=== PATIENT | male | born 1975 | race Two or more races ===

== ENCOUNTER → 2022-12-31 | Outpatient (CLI) | payer MEDICARE, MEDICAID | END | disposition home or self-care (01) | LOC: Rad HDHVI 08:06 | PROVIDERS: ATTEND Internal Medicine Cardiovascular Disease | DX: I11.9 Hypertensive heart disease without heart failure (principal) | CPT/HCPCS: 93306 ==

== ENCOUNTER → 2023-01-04 | Outpatient (CLI) | payer MEDICARE, MEDICAID ==
[~2023-01-04] VITALS: Ht 177.8 cm; Wt 66.2 kg
[~2023-01-04] MED LIST: ADENOSINE 56 MG in GIVE UN-DILUTED 0 ML IV ONE; ADENOSINE 90 MG/30 ML INJ IV ONE
== END | disposition home or self-care (01) ==
LOC: Rad HDHVI 09:19
PROVIDERS: ATTEND Internal Medicine Cardiovascular Disease
DX: E78.5 Hyperlipidemia, unspecified (principal); N19 Unspecified kidney failure; Z82.49 Family history of ischemic heart disease and other diseases of the circulatory system
CPT/HCPCS: 78452; 93005; 96374; 96375; A9500; J0153

== ENCOUNTER → 2023-01-12 | Outpatient (CLI) | payer MEDICARE, MEDICAID | END | disposition home or self-care (01) | LOC: Rad HDHVI 15:41 | PROVIDERS: ATTEND Internal Medicine Cardiovascular Disease | DX: I70.203 Unspecified atherosclerosis of native arteries of extremities, bilateral legs (principal) | CPT/HCPCS: 93925 ==

== ENCOUNTER 2023-02-10 07:12 | Day surgery (SDC) | payer MEDICARE, MEDICAID ==
[2023-02-09 10:39] LABS: Basophils # (auto) 0 10 ^3/uL (0-0.2); Basophils % (auto) 0.6 % (0.0-2.0); Eosinophils # (auto) 0.1 10 ^3/uL (0-0.8); Eosinophils % (auto) 1.8 % (0.0-7.0); Hematocrit 37.3 % (41.0-53.0); Hemoglobin 12.3 g/dL (13.5-17.5); Lymphocytes # (auto) 2.7 10 ^3/uL (0.4-5.4); Lymphocytes % (auto) 36.5 % (10.0-50.0); Mean Corpuscular Hemoglobin 29.6 pg (28.0-32.0); Mean Corpuscular Volume 89.7 fL (80.0-100.0); Monocytes # (auto) 1.1 10 ^3/uL (0-1.3); Monocytes % (auto) 15.5 % (0.0-12.0); Neutrophils # (auto) 3.3 10 ^3/uL (1.6-8.6); Neutrophils % (auto) 45.6 % (37.0-80.0); Red Blood Cells 4.16 10^6/uL (4.5-5.90); Red Cell Distribution Width 16.3 % (11.8-14.3); White Blood Cell 7.3 10^3/uL (4.4-10.8)
[2023-02-09 11:00] LABS: INR 0.94 (0.9-1.15); Partial Thromboplastin Time 24.9 SEC (24.5-34.5); Prothrombin Time 9.9 sec (9.3-11.8)
[2023-02-09 11:26] LABS: Alanine Aminotransferase 23 U/L (7-40); Alkaline Phosphatase 67 U/L (46-116); Anion Gap 7.8 (5-15); BUN/Creatinine Ratio 13.4 (10.0-20.0); Blood Urea Nitrogen 21 mg/dL (9-23); Calcium 10.7 mg/dL (8.5-10.1); Carbon Dioxide 23.2 mmol/L (20-30); Chloride 104 mmol/L (98-107); Glucose 96 mg/dL (74-106); Sodium 135 mmol/L (136-145)
[2023-02-09 11:27] LABS: Albumin 4.6 g/dL (3.2-4.8)
[2023-02-09 11:28] LABS: Aspartate Aminotransferase 12 U/L (13-40); Bilirubin, Total 0.3 mg/dL (0.2-1.0); Total Protein 7.6 g/dL (5.7-8.2)
[2023-02-10] VITALS (8 sets, daily range): BP systolic 139–160; BP diastolic 85–112; PULSE 49–60; RESP 12–17; O2SAT 95–99
[~2023-02-10] VITALS: Ht 177.8 cm; Wt 67.6 kg
[~2023-02-10 07:12] MED LIST changes: -ADENOSINE 56 MG in GIVE UN-DILUTED 0 ML IV ONE; -ADENOSINE 90 MG/30 ML INJ IV ONE; +FAMO-12 PO; +MYCO250C PO; +PRAV20TA3 PO; +PRE5T PO; +SIRO1TAB4 PO; +TACR1GRA PO; +[UNRECOGNIZED DRUG - CODE] PO
[2023-02-10] MEDS ORDERED: fentaNYL CITRATE 100 MCG/2 ML VL ONE (11:03)
[2023-02-10] MEDS ORDERED: SODIUM CHL 0.9% 0 ML ONE (11:03)
[2023-02-10] MEDS ORDERED: ANGIOMAX 250 MG VIAL IV ONE (11:03)
[2023-02-10] MEDS ORDERED: MIDAZOLAM HCL 2MG/2ML 2ml VIAL (1mg/ml) ONE (11:03)
[2023-02-10] MEDS ORDERED: LIDOCAINE 2%HCL (LOCAL ANESTH.) INJ 20ML MDV ONE (11:04)
[2023-02-10] MEDS ORDERED: IOHEXOL 350 MG/ML 100ML IJ ONE (11:04)
[2023-02-10] MEDS ORDERED: IODIXANOL 320MG/ML 100ML BTL IV ONE (11:08)
== END 2023-02-10 13:50 | disposition home or self-care (01) ==
LOC: CATH 07:12
PROVIDERS: ATTEND Internal Medicine Cardiovascular Disease
DX: I96 Gangrene, not elsewhere classified (principal); Z94.0 Kidney transplant status; I10 Essential (primary) hypertension; E78.5 Hyperlipidemia, unspecified
CPT/HCPCS: 36247; 36415; 75716; 80053; 85025; 85610; 85730; C1769; C1887; C1894; J1644; J2250; J3010; Q9967; 99152

== ENCOUNTER 2023-03-16 08:20 | Day surgery (SDC) | payer MEDICARE, MEDICAID ==
[2023-03-09 09:39] LABS: Basophils # (auto) 0.1 10 ^3/uL (0-0.2); Basophils % (auto) 1.1 % (0.0-2.0); Eosinophils # (auto) 0.2 10 ^3/uL (0-0.8); Eosinophils % (auto) 2.2 % (0.0-7.0); Hematocrit 40.1 % (41.0-53.0); Lymphocytes # (auto) 2.9 10 ^3/uL (0.4-5.4); Lymphocytes % (auto) 33.3 % (10.0-50.0); Mean Corpuscular Hemoglobin 29.7 pg (28.0-32.0); Mean Corpuscular Hgb Conc. 32.4 g/dL (32.0-36.0); Mean Corpuscular Volume 91.7 fL (80.0-100.0); Monocytes # (auto) 1.2 10 ^3/uL (0-1.3); Monocytes % (auto) 13.7 % (0.0-12.0); Neutrophils # (auto) 4.4 10 ^3/uL (1.6-8.6); Neutrophils % (auto) 49.7 % (37.0-80.0); Nucleated Red Blood Cells % 0.1 %; Red Blood Cells 4.37 10^6/uL (4.5-5.90); Red Cell Distribution Width 15.4 % (11.8-14.3); White Blood Cell 8.8 10^3/uL (4.4-10.8)
[2023-03-09 09:50] LABS: Urine Bacteria NONE SEEN /hpf (None Seen); Urine Blood 1+ /uL (Negative); Urine Clarity Clear (Clear); Urine Color Colorless (Yellow); Urine Protein, UAD 2+ (Negative); Urine Specific Gravity 1.015 (1.001-1.035); Urine Urobilinogen Normal (Negative); Urine WBC 1 /hpf (0 - 3); Urine pH 5.5 (5.0-8.0)
[2023-03-09 09:55] LABS: INR 0.91 (0.9-1.15); Partial Thromboplastin Time 26.8 SEC (24.5-34.5); Prothrombin Time 9.6 sec (9.3-11.8)
[2023-03-09 10:30] LABS: Alanine Aminotransferase 30 U/L (7-40); Albumin 4.8 g/dL (3.2-4.8); Alkaline Phosphatase 82 U/L (46-116); Anion Gap 9 (5-15); Aspartate Aminotransferase 33 U/L (13-40); BUN/Creatinine Ratio 14.7 (10.0-20.0); Bilirubin, Total 0.3 mg/dL (0.2-1.0); Blood Urea Nitrogen 23 mg/dL (9-23); Calcium 11.2 mg/dL (8.5-10.1); Carbon Dioxide 23 mmol/L (20-30); Chloride 103 mmol/L (98-107); Glucose 77 mg/dL (74-106); Potassium 4.6 mmol/L (3.5-5.1); Sodium 135 mmol/L (136-145); Total Protein 8.1 g/dL (5.7-8.2)
[~2023-03-16] VITALS: Ht 177.8 cm; Wt 66.7 kg
[2023-03-16] MEDS ORDERED: ceFAZolin 1GM/50ML 100 ML IV ONE (09:05)
[2023-03-16] MEDS ORDERED: LIDOCAINE 1% HCL (LOCAL ANESTH.) INJ 20ML MDV ONE (09:53)
[2023-03-16] MEDS ORDERED: BUPIVACAINE HCL 0.25% P/F 10 ML VIAL ONE (09:53)
[2023-03-16] MEDS ORDERED: fentaNYL CITRATE 100 MCG/2 ML VL ONE (10:03)
[2023-03-16] MEDS ORDERED: PROPOFOL 10 MG/ML 20 ML IV ONE (10:04)
[2023-03-16] MEDS ORDERED: HYDROCORTISONE SOD SUCC 100 MG/2ML INJ VIAL ONE (10:12)
[2023-03-16 10:48] VITALS: PULSE 56; RESP 9; TEMP 97.8; O2SAT 98
[2023-03-16] MEDS ORDERED: HYDROmorphone HCL 2 MG/ML VL/or syr IV PRN (11:00)
[2023-03-16 11:40] VITALS: BP 163/98; PULSE 59; RESP 11; O2SAT 98
== END 2023-03-16 11:45 | disposition home or self-care (01) ==
LOC: SUR 08:20
PROVIDERS: ATTEND Podiatrist Foot & Ankle Surgery
DX: I96 Gangrene, not elsewhere classified (principal); I10 Essential (primary) hypertension; D64.9 Anemia, unspecified; Z88.8 Allergy status to other drugs, medicaments and biological substances; Z79.899 Other long term (current) drug therapy; Z98.890 Other specified postprocedural states
CPT/HCPCS: 28810; 36415; 73620; 80053; 81001; 85025; 85610; 85730; 88305; 88311; J0690; J1720; J2001; J2704; J3010; J3490

== ENCOUNTER → 2023-04-25 | Outpatient (CLI) | payer MEDICARE, MEDICAID | END | disposition home or self-care (01) | LOC: Rad HDHVI 09:38 | PROVIDERS: ATTEND Internal Medicine Cardiovascular Disease | DX: I70.203 Unspecified atherosclerosis of native arteries of extremities, bilateral legs (principal) | CPT/HCPCS: 93925 ==

== ENCOUNTER 2024-12-28 11:55 | Outpatient (CLI) | payer MEDICARE, MEDICAID ==
[2024-12-28 12:00] VITALS: BP 124/83; PULSE 76; RESP 16; O2SAT 93
[2024-12-28 12:10] VITALS: BP 130/76; PULSE 62; RESP 16; O2SAT 93
== END 2024-12-28 17:00 | disposition home or self-care (01) ==
LOC: CHF HDHVI 11:55
PROVIDERS: ATTEND Internal Medicine Cardiovascular Disease
DX: M79.89 Other specified soft tissue disorders (principal)
CPT/HCPCS: G0463

== ENCOUNTER → 2024-12-31 | Outpatient (CLI) | payer MEDICARE, MEDICAID ==
--- NOTE | 2024-12-31 12:19 | DVH ---
EXAM: XY L FOOT 3 VIEW XRAY CLINICAL INDICATION: FOOT PAIN TECHNIQUE: XY L FOOT 3 VIEW XRAY Comparison: XY L FOOT 2 VIEW XRAY on DOS: 03/16/23 FINDINGS/IMPRESSION: There is no evidence of acute fracture or dislocation. 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 The alignment is anatomical. There is no radiopaque foreign body.
== END | disposition home or self-care (01) ==
LOC: Rad HDHVI 09:36
PROVIDERS: ATTEND Internal Medicine Cardiovascular Disease
DX: M79.672 Pain in left foot (principal); Z89.422 Acquired absence of other left toe(s)
CPT/HCPCS: 73630

== ENCOUNTER 2025-01-01 09:33 | Outpatient (CLI) | payer MEDICARE, MEDICAID | END 2025-01-01 17:00 | disposition home or self-care (01) | LOC: Rad HDHVI 09:33 | PROVIDERS: ATTEND Internal Medicine Cardiovascular Disease | DX: I07.1 Rheumatic tricuspid insufficiency (principal); I10 Essential (primary) hypertension | CPT/HCPCS: 93306 ==

== ENCOUNTER 2025-01-30 08:51 | Outpatient (CLI) | payer MEDICARE, MEDICAID | END 2025-01-30 17:00 | disposition home or self-care (01) | LOC: Rad HDHVI 08:51 | PROVIDERS: ATTEND Internal Medicine Cardiovascular Disease | DX: I10 Essential (primary) hypertension (principal); E78.5 Hyperlipidemia, unspecified | CPT/HCPCS: 93880 ==

== ENCOUNTER 2025-02-25 09:22 | Outpatient (CLI) | payer MEDICARE, MEDICAID ==
[~2025-02-25] VITALS: Ht 177.8 cm; Wt 72.1 kg
== END 2025-02-25 17:00 | disposition home or self-care (01) ==
LOC: Rad HDHVI 09:22
PROVIDERS: ATTEND Internal Medicine Cardiovascular Disease
DX: I11.0 Hypertensive heart disease with heart failure (principal); I50.33 Acute on chronic diastolic (congestive) heart failure; I73.9 Peripheral vascular disease, unspecified; C61 Malignant neoplasm of prostate; E78.00 Pure hypercholesterolemia, unspecified; Z94.0 Kidney transplant status; Z82.49 Family history of ischemic heart disease and other diseases of the circulatory system
CPT/HCPCS: 93017